=== PATIENT | male | born 1975 | race Two or more races ===

== ENCOUNTER 2018-09-22 08:30 | Inpatient (IN) | payer OTHER ==
[~2018-09-22] VITALS: Ht 177.8 cm; Wt 89.4 kg
[2018-09-29] VITALS (16 sets, daily range): BP systolic 122–156; BP diastolic 80–103
[2018-09-29] MEDS ORDERED: LR 1000ml 1,000 ML IVLG SCH (06:36)
--- NOTE | 2018-09-29 06:37 | Immediate Post-Op Evaluation ---
Immediate Post-Op Evalulation Immediate Post-Op Evalulation Procedure: Left L5-S1 Laminectomy, Discectomy, Foraminiotomy Date of Evaluation: Sep 29, 2018 Time of Evaluation: 11:10 IV Fluids: 500 LR Blood Products: 0 Estimated Blood Loss: 50 Urinary Output: 170 Blood Pressure Systolic: 156 Blood Pressure Diastolic: 88 Pulse Rate: 104 Respiratory Rate: 16 O2 Sat by Pulse Oximetry: 100 Temperature (Fahrenheit): 98.7 Pain Score (1-10): 2 Nausea: No Vomiting: No Complications 0 Patient Status: awake, reacts, patent, extubated, none Hydration Status: adequate Dru grams Ancef IV Given Within 1 Hr of Incision: Yes Time Given: 08:36 Sunny Smith MD Sep 29, 2018 06:37
[2018-09-29] MEDS ORDERED: Zemuron 50mg/5ml Inj IV ONE (06:40)
[2018-09-29] MEDS ORDERED: oxyCODONE HCL/Acetaminophen 5/325mg ORAL PRN (06:45)
[2018-09-29] MEDS ORDERED: LORazepam Inj 2mg/ml 1ml IV PRN (06:45)
[2018-09-29] MEDS ORDERED: DiphenhydrAMINE 50mg/ml Inj IVP PRN (06:45)
[2018-09-29] MEDS ORDERED: Meperidine 50mg/ml Inj(FOR RIGORS ONLY) IVP PRN (06:45)
[2018-09-29] MEDS ORDERED: Midazolam 2mg/2ml Inj IVP PRN (06:45)
[2018-09-29] MEDS ORDERED: Metoclopramide 10mg/2ml Inj IVP PRN (06:45)
[2018-09-29] MEDS ORDERED: Norco 5mg/325mg tab ORAL PRN (06:45)
[2018-09-29] MEDS ORDERED: HYDROcodone/Acetamin 7.5/325 tab ORAL PRN (06:45)
[2018-09-29] MEDS ORDERED: Acetaminophen (Non formulary) 100 ML IV ONE (06:45)
[2018-09-29] MEDS ORDERED: Hydromorphone 0.5mg/0.5ml inj IVP PRN (06:45)
[2018-09-29] MEDS ORDERED: Ketorolac 30mg Inj IV PRN ×2 (06:45)
[2018-09-29] MEDS ORDERED: Atropine Sulfate 0.4mg/ml inj IVP PRN (06:45)
[2018-09-29] MEDS ORDERED: Thrombin 5000 units spray kit TOPIC ONE (06:50)
[2018-09-29] MEDS ORDERED: Thrombin 5000 units TOPIC ONE ×2 (06:51→10:01)
[2018-09-29] MEDS ORDERED: Bacitracin 50000 Units Vial ONE (06:51)
[2018-09-29] MEDS ORDERED: Bupivacaine w/Epi 0.5% 30ml Vial INJ ONE (06:51)
[2018-09-29] MEDS ORDERED: NORCO 10-325 T1 EACH ORAL (06:52)
[2018-09-29] MEDS ORDERED: ceFAZolin sod 1 GM in NS 55 ML IVPB ONE (07:00)
[2018-09-29] MEDS ORDERED: Lidocaine 1% Plain 30 ml INJ ONE (07:11)
[2018-09-29] MEDS ORDERED: fentaNYL 100 mcg/2 mL IV ONE ×2 (07:15→09:30)
[2018-09-29] MEDS ORDERED: Sodium Chloride 10ml vial INJ ONE (07:17)
[2018-09-29] MEDS ORDERED: Lidocaine 1% MPF 10mg/ml 5ml ONE (07:17)
[2018-09-29] MEDS ORDERED: Dexamethasone 4mg/ml vial ONE (07:17)
--- NOTE | 2018-09-29 07:22 | Anethesia Preoperative Eval ---
Anesthesia Pre-op PMH/ROS General Date of Evaluation: Sep 29, 2018 Time of Evaluation: 08:21 Anesthesiologist: Luis ASA Score: ASA 2 Mallampati Score Class I : Soft palate, uvula, fauces, pillars visible Class II: Soft palate, uvula, fauces visible Class III: Soft palate, base of uvula visible Class IV: Only hard plate visible Mallampati Classification: Class II Surgeon: Andrzej Diagnosis: Back Pain Surgical Procedure: Left L5-S1 Laminectomy, Discectomy, Foraminiotomy Anesthesia History: none Family History: no anesthesia problems Allergies: Coded Allergies: No Known Allergies (Unverified , 09/29/18) Medications: see eMAR Patient NPO?: Yes NPO Date: Sep 28, 2018 NPO Time: 2229 Past Medical History Other: obesity - BMI 30 Anesthesia Pre-op Phys. Exam Physician Exam Last Vital Signs Date Time Temp Pulse Resp B/P (MAP) Pulse Ox O2 Delivery O2 Flow Rate FiO2 09/29/18 06:52 Room Air 09/29/18 06:48 98.5 89 18 129/87 (101) 97 Constitutional: NAD Neurologic: CN 2-12 intact Cardiovascular: RRR Respiratory: CTA Gastrointestinal: S/NT/ND Airway Exam Mallampati Score: Class II MO: full ROM: full Teeth: intact Anesthesia Pre-op A/P Risk Assessment & Plan Assessment: ASA 2 Plan: GA, SED, GlideScope Go Status Change Before Surgery: No Pre-Antibiotics Dru grams Ancef IV Given Within 1 Hr of Incision: Yes Time Given: 08:36 Sunny Smith MD Sep 29, 2018 07:22
--- NOTE | 2018-09-29 08:21 | Pre-Procedure Note/Attestation ---
Pre-Procedure Note/Attestation Complete Prior to Procedure Procedure Narrative: L5S1 laminectomy and microdiscectomy Indications for Procedure Pre-Operative Diagnosis: HNP l5s1 with radiculopathy Attestation I attest that I discussed the nature of the procedure; its benefits; risks and complications; and alternatives (and the risks and benefits of such alternatives ), prior to the procedure, with the patient (or the patient's legal insurance sales representative). I attest that, if there was a reasonable possibility of needing a blood transfusion, the patient (or the patient's legal insurance sales representative) was given the [facility] standardized written summary, pursuant to the [place] Blood Safety Act ([place] Health and Safety Code # 1645, as amended). I attest that I re-evaluated the patient just prior to the surgery and that there has been no change in the patient's H&P, except as documented below: Ken Donnelly MD Sep 29, 2018 08:21
[2018-09-29] MEDS ORDERED: Bacitracin 50000 Units Vial IRRIG ONE (10:00)
[2018-09-29] MEDS ORDERED: NS Irrig 1000ml IRRIG ONE (10:01)
[2018-09-29] MEDS ORDERED: Naloxone 0.4mg/ml Inj ONE (10:21)
--- NOTE | 2018-09-29 10:54 | Brief Operative Note ---
Immediate Post Operative Note Operative Note Pre-op Diagnosis: HNP l5s1 with radiculopathy Procedure: L5S1 L lami/microdiscectomy Post-op Diagnosis: same as pre-op Findings: consistent w/pre-op dx studies Surgeon: everardo Retail Analyst: angelique lozoya Anesthesiologist: mackenzie Anesthesia: general Specimen: none Complications: none Condition: stable Fluids: 500 Estimated Blood Loss: minimal Drains: none Implant(s) used?: No Ken Donnelly MD Sep 29, 2018 10:54
[2018-09-29] MEDS ORDERED: Milk of Magnesia 30ml Ud ORAL PRN (11:00)
[2018-09-29] MEDS: fentaNYL 100 mcg/2 mL IV PRN ×3 (11:31→12:23)
--- NOTE | 2018-09-29 13:00 | NUR ---
NURSE NOTES: Received report from Marilin RICO. Patient arrived to unit at 1250 via bed. Patient is awake alert and oriented x4, laying supine. SCD's in place. NO s/s acute distress noted, patient reporting pain with movement. Dressing assessed c/d/i. 18g right hand IV to KVO IVF. Neuro checked assessed intact. Side rails upx3 bed low and locked, call light in reach. Will continue to monitor.
[2018-09-29] MEDS ORDERED: HYDROcodone/Acetamin 10/325 tab ORAL PRN ×2 (14:00→20:10)
[2018-09-29] MEDS: D5 1/2NS 1,000 ML IV SCH (14:25)
--- NOTE | 2018-09-29 15:15 | Operative Note - Dictated ---
DATE OF OPERATION: 09/29/2018 SURGEON: Ken Donnelly M.D. ORIENTATION AND MOBILITY SPECIALIST SURGEON: Clemente Mesa PA-C ANESTHESIOLOGIST: Sunny Smith M.D. ANESTHESIA TYPE: General endotracheal anesthesia. PREOPERATIVE DIAGNOSIS: Disk herniation L5-S1 on the left side with radicular pain, left lower extremity. POSTOPERATIVE DIAGNOSIS: same OPERATION PERFORMED: 1. Laminectomy of L5 and superior one-half of S1. 2. Medial facetectomy, left side L5-S1. 3. Lysis of adhesions and neurolysis secondary to chronic disk herniation. 4. Use of operating microscope. 5. Neurodiagnostic monitoring. 6. Diskectomy, left L5-S1. ESTIMATED BLOOD LOSS: Minimal. COMPLICATIONS: None. FLUIDS: 500 mL. 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 The patient developed significant mechanical back pain as well as radicular pain, left lower extremity. Surgical intervention was delayed until trial of conservative care namely epidural injection, which helped somewhat. However, he had persistent cramping and pain in the left calf and elected for surgical fix. RISKS NOTE: The patient was explained in detail risks, benefits of surgery to include, but not be limited to those of bleeding, infection, damage to nerves, vessels, tendons, anesthetic risk, allergic reaction, aspiration, possibly , possible risk of recurrent pain and need for additional surgery, spinal fusion, etc was discussed. The patient elected to proceed. OPERATIVE PROCEDURE IN DETAIL: The patient was taken to the operative suite. After general endotracheal anesthesia was obtained, Crowell catheter was placed. He was turned prone onto a radiolucent table. All bony prominences were well padded. The back was then prepped and draped in usual sterile fashion. A fluoroscope was brought into place and localization of the L5-S1 level was identified. At this point, the skin was infiltrated with lidocaine and epinephrine. Incision was sharply carried down through the subcutaneous distal to location of needle placement to be consistent with the L5-S1 location. At this point, subperiosteal dissection was carried out on the left side. Self-retaining retractor was put in place after fluoroscopically again the L5-S1 was verified. Operating microscope was brought into place. Hemilaminectomy of the leading edge of L5 was performed. Ligamentum flavum was removed in a piecemeal fashion. Due to the inferior disk herniation at L5-S1, decision was made to perform more than usual S1 laminectomy on the left side, which allowed for visualization of the S1 nerve root. The exiting L5 nerve root was also visualized. The disk herniation at L5-S1 was markedly scarred in and required an aggressive neurolysis, which was performed using meticulous technique. Bipolar as well as removal of neovascularization, which also did constrict the nerve roots. At this juncture, the traversing S1 nerve root was medialized. A scalpel was taken through the disk protrusion from calcified edge of the disk herniation at L5-S1. This subsequently allowed for a thorough diskectomy to be performed. The disk at L5-S1 was markedly degenerated. Once neurolysis and decompression was achieved, medial facetectomy allowed for decompression. At this juncture, once satisfied with the medial facetectomy, foraminotomy, and central/lateral decompression, decision was made to close. Copious irrigation was applied. The meticulous hemostasis was achieved using FloSeal. At this point, decision was made to close. Fascia was repaired using #1 Vicryl, subcutaneous closure using 2-0 Vicryl. Dermabond was applied. The patient tolerated the procedure well. Post sterile dressing, decision was made to turn the patient and at time of this dictation sponge and needle counts were correct and the patient was still intubated. Neurodiagnostic monitoring remained stable throughout. Ken Donnelly M.D. DR: Bianca JOB#: [id number] CC: ALLY
[2018-09-29] MEDS: HYDROmorphone 1mg/ml Carpuject SUBQ PRN ×2 (15:37→20:20)
--- NOTE | 2018-09-29 15:38 | NUR ---
NURSE NOTES: Patient voided 700mL of clear yellow urine. No difficult noted. Will continue to monitor.
[2018-09-29] MEDS: ceFAZolin sod 1 GM in D5W 55 ML IV SCH (16:20)
--- NOTE | 2018-09-29 16:39 | Diagnostic Imaging Report ---
INDICATION: Pain, intraoperative TECHNIQUE: Intraoperative imaging Fluoroscopy time: 3.3 seconds Total dose: 0.15904 mGym2 Total number of images: One COMPARISON: None FINDINGS: Intraoperative imaging demonstrates surgical tool projected posteriorly to what is presumably the L5-S1 disc. IMPRESSION: Intraoperative imaging, as described
[2018-09-29] MEDS: Docusate 100mg cap ORAL SCH (17:53)
--- NOTE | 2018-09-29 19:20 | NUR ---
HAND-OFF: Report given to Diogenes IRCO. Patient stable.
--- NOTE | 2018-09-29 19:21 | NUR ---
NURSE NOTES: Report taken from JACKY Dolan. Patient is awake and oriented, friend at bedside. MD spoke with patient. Patient shows no signs of distress on room air. Pain is slowly coming back, stated it was getting near 5/10. Advance diet for the morning. IV site c/d/i and patent. Bed in lowest position, call light within reach.
--- NOTE | 2018-09-29 21:17 | NUR ---
CASE MANAGEMENT: REVIEW 43/M DIRECT ADMIT FROM HOME CC: PAIN SI: BACK PAIN LEFT L5-S1 LAMINECTOMY, DISCECTOMY, FORAMINOTOMY 09/29 T 98.4 HR 105 RR 20 BP 130/89 SAT 97% NC/2L IS: THROMBIN TOPICAL X1 MAG SULFATE IV X1 ZEMURON IV X1 LACTATED RINGER'S IV X1 INTERQUAL CRITERIA MET: PATIENT ADMITTED TO MED/SURG UNIT 09/29/2018 DCP: PATIENT IS FROM HOME
[2018-09-29] MEDS: HYDROcodone/Acetamin 10/325 tab ORAL PRN (21:48)
--- NOTE | 2018-09-29 22:00 | Consultation ---
DATE OF CONSULTATION: 09/29/2018 ACUTE PAIN CONSULT: CONSULTING PHYSICIAN: Carlitos Dyson M.D. REFERRING PHYSICIAN: Ken Donnelly M.D. Dr. Ken Donnelly, Thank you kindly for consulting me to evaluate and render an opinion as to how to proceed in the management of the patient's acute postoperative lumbar spine pain after his lumbar spine decompressive surgery today. HISTORY OF PRESENT ILLNESS: The patient is a pleasant 43-year-old gentleman, who injured his lumbar spine in a work-related injury. 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 I saw the patient at bedside with a female hospitality job titles. I performed detailed history and physical examination. I reviewed the medical record in detail for over 30 minutes and spent over 75 minutes in consultation today. Multiple records were reviewed including utilization review and surgical authorization for lumbar spine surgery by Dr. Ken Donnelly 2018. Preoperative History and Physical was reviewed by Dr. Bernardo Sellers dated 09/17/2018 along with diagnostic testing of laboratory studies, 12-lead EKG, chest x-ray, echocardiogram, and lumbar spine MRI. Further records reviewed include primary treating physician's progress report by Dr. Ken Donnelly dated 06/18/2018. Multiple records were reviewed from today's date of surgery at [facility], 09/29/2018 including consent for surgical treatment, consent for anesthesia, consent for blood products, medication administration record, medication reconciliation order form, PACU record, PACU orders, anesthesia record, postoperative surgery report, and postoperative spine surgery orders Dr. Ken Donnelly, 24-hour medical/surgical flow sheet, initial nursing assessment, guidelines for prophylactic antibiotics, guidelines for DVT prophylaxis. PAST MEDICAL HISTORY: 1. Acute postoperative lumbar spine pain, status post decompressive lumbar spine surgery by Dr. Ken Donnelly in September 2018. 2. Work-related injury. 3. 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 SOCIAL HISTORY: The patient is accompanied at the bedside by a female hospitality job titles. He states he has not had any alcohol for nearly 2 years. He denies tobacco or illicit drug use. FAMILY HISTORY: Noncontributory. REVIEW OF SYSTEMS: Per Bernardo Sellers M.D. PAST SURGICAL HISTORY: Child foot surgery age 3. MEDICATIONS: At home NSAIDs, recent use of Moore 10 mg with good efficacies and minimal side effects. ALLERGIES: No known drug allergies. PHYSICAL EXAMINATION: GENERAL: Age 43, height 5 feet 10 inches, weight 202 pounds. Body mass index 29. VITAL SIGNS: Shows pain level 7/10 especially with coughing. Afebrile, pulse 100, respirations 19, blood pressure 122/83, oxygen saturation 98%. HEENT: Normocephalic and atraumatic. The patient is breathing comfortably and appears non-toxic. He does display significant pain when using incentive spirometer and with post-expiration coughing. There is no abdominal splinting. Pain by incision area. Good motor function bilaterally in lower extremities. 5/5. GENITOURINARY: Deferred. ABDOMEN: Soft. HEART: Regular rhythm. CHEST: Clear to auscultation bilaterally. NEUROLOGIC: Detailed neurologic exam per Dr. eKn Donnelly. DIAGNOSTIC TESTING: Shows 12-lead EKG, nonspecific ST changes, heart rate 95 dated 09/17/2018. Echocardiogram dated 09/17/2018 shows normal left ventricular function, ejection fraction 60%. Preoperative chest x-ray shows no acute cardiopulmonary disease 09/17/2018. MRI lumbar spine 06/17/2018 shows retrolisthesis of L5 over S1 as well as 4 mm left posterolateral disc protrusion. LABORATORY STUDIES: From 09/17/2018 shows glucose 105, sodium 140, potassium 4.2, chloride 100, bicarbonate 31, BUN 13, creatinine 1.1. Calcium 9.8. Total protein 8.0. Albumin 5.0. AST 24, ALT 68, alkaline phosphatase 54, total bilirubin 0.4. White count 7, hematocrit 46, platelets 270. INR 0.9 and PTT 30. IMPRESSION: 1. Acute postoperative lumbar spine pain, status post decompressive lumbar spine surgery by Dr. Ken Donnelly in September 2018. 2. Work-related injury. 3. 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 TREATMENT RECOMMENDATIONS: I also spoke with the hospital pharmacist, Ling, along with the charge nurse, Eulalia RICO. Placed the patient on the following simplified analgesic plan to optimize his pain control while minimizing adverse side effects and medication administration errors. The patient had been using Moore 10 mg tablets over the past week as his pain complaints were increasing. He did tolerate this dosing well, so I have ordered Moore 10/325 tablets orally every three hours p.r.n. for mild pain or fever. I added a breakthrough dose of Dilaudid 1 mg subcutaneously every three hours p.r.n. for severe pain. At this point, I would hold off on the class of benzodiazepines or muscle relaxants and concentrate on MU-opioid agonist agents for primary analgesia. The patient does not appear to be anxious and has good social support at the bedside by a female hospitality job titles. I will place the patient on Pepcid 20 mg b.i.d. for GI ulcer prophylaxis and I will also order p.r.n. dose of Mylanta 30 mL q.6 hours in case of any GERD symptom exacerbation. I have ordered Benadryl 25 mg orally every 6 hours in case of any itching complaints. I have placed the patient on Zofran 4 mg as a rescue antiemetic every 4 hours p.r.n. To help promote bowel regularity, the patient has been placed on Colace 100 mg b.i.d. with p.r.n. laxative milk of magnesia 30 mL p.r.n. as well. I demonstrated proper use of incentive spirometer to encourage good pulmonary toilet. The patient will begin ambulating with Physical Therapy tomorrow. We will see how the patient advances to help expedite discharge planning. I have left a prescription for 60 tablets of Moore 10 mg for outpatient usage. Carlitos Dyson M.D. DR: EWELINA JOB#: [id number] CC:
[2018-09-30] VITALS: BP 141/91
[2018-09-30] MEDS: ceFAZolin sod 1 GM in D5W 55 ML IV SCH ×2 (00:09→08:14)
[2018-09-30] MEDS: HYDROmorphone 1mg/ml Carpuject SUBQ PRN ×4 (00:09→16:24)
[2018-09-30] MEDS: D5 1/2NS 1,000 ML IV SCH ×2 (00:09→11:11)
[2018-09-30 04:00] VITALS: BP 133/82
--- NOTE | 2018-09-30 07:19 | NUR ---
HAND-OFF: Report given to JACKY Dolan.
--- NOTE | 2018-09-30 07:41 | NUR ---
NURSE NOTES: Received report from Diogenes RICO. On rounds, patient is awake alert and oriented x4, no s/s acute distress noted. Patient reports pain is starting to come back, educated patient to request pain medication when he is ready, patient reports understanding. SCD's in place. Dressing c/d/i. Side rails upx2, bed low and locked, call light in reach. Will continue to monitor.
[2018-09-30 08:00] VITALS: BP 141/91
[2018-09-30] MEDS: Docusate 100mg cap ORAL SCH ×2 (08:13→18:00)
[2018-09-30] MEDS ORDERED: Propofol 1,000mg/ 100ml btl IV ONE (08:20)
[2018-09-30] MEDS ORDERED: Sterile Water Irrig 1000ml IRRIG ONE (08:20)
[2018-09-30] MEDS ORDERED: LR 1000ml ONE (08:20)
--- NOTE | 2018-09-30 08:46 | Orthopedic Spine Progress Note ---
Ortho Spine - Progress Note Subjective Symptoms: c/o post-op back pain Objective Vital Signs: Last 24 Hour Vital Signs Date Time Temp Pulse Resp B/P (MAP) Pulse Ox O2 Delivery O2 Flow Rate FiO2 09/30/18 08:00 98.2 92 18 141/91 (108) 97 09/30/18 04:00 98.4 90 18 133/82 (99) 94 09/30/18 00:00 98.3 104 17 141/91 (108) 96 09/29/18 21:00 Nasal Cannula 2.0 09/29/18 20:00 98.1 96 19 141/91 (108) 96 09/29/18 16:00 97.8 100 19 122/83 (96) 98 09/29/18 15:00 98.6 109 19 133/85 (101) 96 09/29/18 13:50 98.6 109 19 133/85 (101) 96 09/29/18 13:20 98.4 105 20 133/84 (100) 95 09/29/18 13:00 Nasal Cannula 2.0 09/29/18 12:50 98.9 101 19 130/89 (103) 97 09/29/18 12:30 98.0 91 15 141/84 98 Nasal Cannula 3 09/29/18 12:15 95 15 139/84 96 Nasal Cannula 3 09/29/18 12:00 104 17 148/80 99 Nasal Cannula 3 09/29/18 11:50 109 18 145/95 97 Nasal Cannula 3 09/29/18 11:41 155/103 09/29/18 11:40 103 16 146/93 99 Nasal Cannula 3 09/29/18 11:30 96 16 139/103 96 Nasal Cannula 3 100 09/29/18 11:20 91 17 140/100 97 Nasal Cannula 3 100 09/29/18 11:10 94 14 155/91 100 Simple Mask 6 100 09/29/18 10:59 98.7 106 16 156/88 100 Simple Mask 6 100 09/29/18 10:56 104 16 100 I&O: Intake and Output 09/29/18 09/30/18 19:00 07:00 Intake Total 950 ml Output Total 905 ml Balance 45 ml Intake Oral 300 ml IV Total 650 ml Output Urine Total 890 ml Estimated Blood Loss 15 ml # Voids 1 Wound: clean, intact Drains: none Neuro Status: normal - L leg numbness, but motor inact Assessment Procedure Performed: L5S1 L lami/microdiscectomy Plan Plan: PT, pain management, discharge plan Ken Donnelly MD Sep 30, 2018 08:46
--- NOTE | 2018-09-30 10:04 | 48 Hour Post Anesthesia Eval ---
Post Anesthesia Evaluation Procedure: Left L5-S1 Laminectomy, Discectomy, Foraminiotomy Date of Evaluation: Sep 30, 2018 Time of Evaluation: 10:03 Blood Pressure Systolic: 142 0: 76 Pulse Rate: 68 Respiratory Rate: 20 Temperature (Fahrenheit): 97.6 O2 Sat by Pulse Oximetry: 98 Airway: patent Nausea: No Vomiting: No Pain Intensity: 2 Hydration Status: adequate Cardiopulmonary Status: stable Mental Status/LOC: patient returned to baseline Follow-up Care/Observations: n/a Post-Anesthesia Complications: none Follow-up care needed: N/A Curtis Elmore MD Sep 30, 2018 10:04
--- NOTE | 2018-09-30 11:18 | NUR ---
REHAB MED PT NOTE CONSULT KYLE BENAVIDEZ CMPLTED, PATIENT WILL BENEFIT FROM SKILLED PT DURING STAY FOR RETURN TO [facility]. RECOMMEND HOME AT [place]. PATIENT AMBULATED IN HALLS WITH FWW AND COMPLETED STAIRS WITH NO COMPLAINTS OF INCREASED PAIN FROM INITIAL. REVIEWED SPINAL PRECAUTIONS AND LOG ROLL TECHNIQUE. PATIENT REQUESTING FWW AND RAISED TOILET SEAT AT DISCHARGE, THERAPIST IN AGREEANCE WITH RECOMMENDATIONS. RN NOTIFIED. PLAN OF CARE INITIATED. MAYO IGLESIAS PT DPT Addendum: 09/30/18 at 1118 by MAYO IGLESIAS PT Amended: Links added.
[2018-09-30 12:00] VITALS: BP 131/88
[2018-09-30] MEDS: HYDROcodone/Acetamin 10/325 tab ORAL PRN (13:05)
--- NOTE | 2018-09-30 13:18 | NUR ---
CASE MANAGEMENT REVIEW SI: POD #1 T. 97.6 HR 85 RR 18 B/P 131/88 RA O2 SAT @ 98% IS: IVF D5KCL@ 10ML/HR PEPCID PO MED/SURG STATUS
[2018-09-30] MEDS ORDERED: NORCO 10-325 T1 EACH ORAL (13:43)
[2018-09-30 16:00] VITALS: BP 126/82
--- NOTE | 2018-09-30 17:00 | Progress Note ---
DATE: 09/30/2018 ACUTE PAIN MANAGEMENT PHYSICIAN PROGRESS NOTE. MEDICATIONS: Medication administration record reviewed. Medications include , Zofran, milk of magnesia, Dilaudid, Faulkner, Pepcid, Colace, Benadryl. LABORATORY STUDIES: No interval laboratory studies. OBJECTIVE: Vital signs within normal limits. Afebrile. Pulse 85, respirations 18, blood pressure 131/88, oxygen saturation 94% on room air. I saw the patient at bedside with a female land acquisition analyst. I discussed the case with the nurse RN, Kelsi, and the surgeon, Dr. Ken Donnelly. The patient still showing moderate pain with deep inspiration and coughing using incentive spirometer. He has been using the Faulkner 10 mg tablets and I did instruct the patient that it is okay to use 1-1/2 tablets if needed. He already has a small supply at home. I did leave a prescription for 60 additional tablets for outpatient usage. We will continue the breakthrough Dilaudid injections as needed to help encourage movement in and out of bed as well for usage when he does transport to home. He does have 90-minute drive to home if he is discharged later this afternoon. The patient has been tolerating advancing diet without difficulties. There are no nausea problems. He denies shortness of breath or chest pain. He is breathing comfortably on room air. He has been ambulating out of bed with physical therapy. The dressing appears clean and dry. The surgeon will provide showering and discharge instructions to the nurse. With normal vital signs and follow up appointment in Dr. Donnelly's outpatient surgical clinic on October 18, 2018. I agree with the surgeon's discharge planning. Carlitos Dysno M.D. DR: Aron JOB#: [id number] CC:
--- NOTE | 2018-09-30 18:30 | NUR ---
NURSE NOTES: Patient discharged. Taken off unit by RN and SALES DEPARTMENT MANAGER at 1618 to private vehicle via wheelchair, assisted into vehicle safely, driven home by significant other. Patient given discharge instructions and reports understanding of the education. Patient given belongings and Rx, patient signed for both. No s/s acute distress on discharge. Patient educated to not drive until cleared by MD, patient reports understanding. Patient given DME: front wheel walker and raised toilet seat. IV removed intact, skin intact. Addendum: 09/30/18 at 1936 by Kelsi Queen RN Correction: Patient taken off unit at 181
--- NOTE | 2018-10-01 06:34 | Discharge Summary ---
Discharge Summary Discharge Summary _ DATE OF ADMISSION: 09/29/2018 DATE OF DISCHARGE: 09/30/2018 DISCHARGED BY: Dr. Ken Donnelly CONSULTANTS: Dr. 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 He developed significant mechanical back pain as well as radicular pain, on left lower extremity. He underwent conservative care namely epidural injections, medications and physical therapy, however, he had persistent cramping and pain in the left calf. He elected for a surgical intervention. Surgical intervention was delayed until trial of conservative care; which failed. He was admitted on 09/29/2018 and underwent laminectomy of L5 and superior one half of S1, medial facetectomy left side L5-S1, with lysis of adhesions and neurolysis secondary to chronic disc herniation and diskectomy, left L5-S1. Patient tolerated procedure well. Post-operatively, he was admitted for postop care. He was placed on SCDs for DVT prophylaxis. He was given pain management. He was seen by production painter. He was placed on GI prophylaxis. He was encouraged use of incentive spirometry. Diet was advanced. He was seen by physical therapist. Crowell catheter was discontinued. He was ambulating well with good pain control. He was eventually discharged home. FINAL DIAGNOSES: Disc herniation L5-S1 on the left side with radicular pain, left lower extremity Status post laminectomy of L5 and superior one half of S1 Medial facetectomy, left side L5-S1 Lysis of adhesions and neuro lysis secondary to chronic disc herniation Diskectomy, left L5-S1 (Refer to operative report) DISPOSITION: Patient was discharged home. DISCHARGE MEDICATIONS: Refer to Discharge Medication List. DISCHARGE INSTRUCTIONS: Follow-up on October 18, 2018. I have been assigned to complete a discharge summary on this account, and I was not involved in the patient's management. Diana Benavides NP Oct 01, 2018 06:34
== END 2018-09-30 18:15 | disposition home or self-care (01) | DRG 520 ==
LOC: SDSOVERFLO 09-29 06:26 → 3E 09-29 12:52
PROC: 0SB40ZZ Excision of Lumbosacral Disc, Open Approach (ICD-10-PCS; principal; 2018-09-29 08:30)
DX: M51.17 Intervertebral disc disorders with radiculopathy, lumbosacral region (principal); I51.89 Other ill-defined heart diseases; E66.9 Obesity, unspecified
CPT/HCPCS: 36415; 72020; 76000; 86850; 86900; 86901; 87081; 94003; 94150; J2405